=== PATIENT | male | born 2000 | race Caucasian/White ===

== ENCOUNTER 2019-07-17 03:07 | Emergency (ER) | payer OTHER ==
[~2019-07-17] VITALS: Ht 172.7 cm; Wt 73.0 kg
[2019-07-17 06:10] VITALS: BP 154/91
== END 2019-07-17 07:50 | disposition home or self-care (01) ==
LOC: ER 03:07
DX: F12.180 Cannabis abuse with cannabis-induced anxiety disorder (principal); Z59.0 Homelessness
CPT/HCPCS: 99283